=== PATIENT | male | born 1990 | race Caucasian/White ===

== ENCOUNTER 2021-11-15 14:07 | Emergency (ER) | payer OTHER, SELFPAY ==
--- NOTE | ~2021-11-15 | CT_ITS ---
EXAMINATION: CT abdomen pelvis wo con DATE: 11/15/2021 15:26 INDICATION: Right flank pain. History kidney stones. TECHNIQUE: Computed tomography (CT) of the abdomen and pelvis was performed without intravenous contr ast. Automated exposure control and iterative reconstruction technique were employed. Exam dose: 264 .95 mGy-cm total exam DLP. COMPARISON: None. FINDINGS: The lung bases are clear. Normal heart size. No pericardial or pleural effusion. The liver, gallbladder, bile ducts, spleen, pancreas, pancreatic duct, and adrenal glands and left ki dney are unremarkable. Mild right nephromegaly and perinephric stranding and moderately prominent right hydroureteronephrosi s are noted secondary to a 3.4 x 5.8 x 5 mm right ureteral calculus situated approximately 4 cm proxi mal to the right ureterovesical junction. The urinary bladder, prostate gland and seminal vesicles are unremarkable. Diverticulosis of the colon; no CT evidence of diverticulitis. There is an approximately 4 x 6.6 mm calcification near the tip of the appendix. The appendix is not dilated and there is new significant appendiceal wall thickening or periappendiceal fat stranding. Included skeletal structures are unremarkable. IMPRESSION: 3.4 x 5.8 x 5 mm distal right ureteral calculus with moderate right hydroureteronephrosi s Calcification near tip of the appendix; no appendiceal dilatation or periappendiceal inflammation is noted Diverticulosis of the colon Reviewed, dictated and finalized at [facility] Reviewed, dictated and finalized at [facility] IMPRESSION: 3.4 x 5.8 x 5 mm distal right ureteral calculus with moderate righ t hydroureteronephrosis Calcification near tip of the appendix; no appendiceal dilatation or periappend iceal inflammation is noted Diverticulosis of the colon
[2021-11-15 14:22] VITALS: BP 172/106; PULSE 60; RESP 14; TEMP 36.3; O2SAT 100
[2021-11-15 15:09] LABS: Basophils Absolute Auto 0.1 K/mm3 (0.0-0.1); Basophils Percent Auto 0.5 % (0.2-1.2); Eosinophils Percent Auto 0.2 % (0-4.4); Hematocrit 43.7 % (42.0-52.0); Hemoglobin 15.6 g/dL (14.0-18.0); Immature Granulocyte Absolute 0.03 K/mm3 (0.00-0.031); Immature Granulocyte Percent A 0.3 % (0-0.5); Lymphocytes Absolute Auto 1.24 K/mm3 (0.9-3.2); Lymphocytes Percent Auto 12.9 % (18.3-44.2); Mean Corpuscular HGB Conc 35.7 g/dl (32-36); Mean Corpuscular Hemoglobin 31.1 pg (26-34); Mean Corpuscular Volume 87.1 fl (80-100); Mean Platelet Volume 10.7 fl (7.4-10.4); Monocytes Absolute Auto 0.6 K/mm3 (0.1-0.6); Neutrophils Absolute Auto 7.7 K/mm3 (1.3-6.7); Neutrophils Percent Auto 80.1 % (45.5-73.1); Platelet Count Result 206 k/mm3 (150-375); Red Blood Count 5.02 M/mm3 (4.6-6.20); Red Cell Distribution Width 11.3 % (11.5-14.5); White Blood Count 9.6 K/mm3 (4.5-10.0)
[2021-11-15 15:12] LABS: Appearance Urine Slightly Cloudy (Clear); Bilirubin Urine Negative (Negative); Blood Urine 3+ (Negative); Color Urine Yellow (Yellow); Glucose Urine UA Negative (Negative); Ketones Urine Negative (Negative); Leukocyte Esterase Ur Negative LEU/UL (Negative); Nitrate Urine Negative (Negative); Protein Urine Trace mg/dL (Negative); Specific Grav Ur 1.025 (1.001-1.035); Urobilinogen Urine 0.2 mg/dL (<2.0); pH Urine 6.5 (5.0-9.0)
[2021-11-15 15:18] LABS: Bacteria Urine Trace /hpf; Mucus Urine Few /lpf; RBC Urine >75 /hpf (0-2); Squamous Epithelial Cell Urine Rare /hpf (Few); WBC Urine 0-3 /hpf
[2021-11-15 15:21] LABS: Alanine Aminotransferase 36 U/L (6-50); Albumin Level 4.7 g/dL (3.5-5.1); Alkaline Phosphatase 70 U/L (38-126); Anion Gap 10 mmol/L (8-16); Aspartate Amino Transferase 27 U/L (17-59); Bilirubin,Total 0.3 mg/dL (0.2-1.3); Blood Urea Nitrogen 9 mg/dL (9-20); Calcium 9.4 mg/dL (8.4-10.2); Carbon Dioxide 32 mmol/L (22-30); Chloride 100 mmol/L (98-107); Estimated CRCL calculation 120 ml/min; Estimated Glomerular Filt Rate > 60; Glucose 118 mg/dL (65-110); Potassium 4.4 mmol/L (3.4-5.0); Sodium 142 mmol/L (137-145)
[2021-11-15 15:24] LABS: Add Urine Microscopic? YES
[2021-11-15] MEDS: HYDROcodone/acetaminophen (*CRX) 5-325 MG TABLET 1 TAB PO (15:32)
[2021-11-15] MEDS: ONDANSETRON HCL ODT 4 MG TABLET PO (15:33)
[2021-11-15 15:48] VITALS: BP 160/99; PULSE 60; RESP 18; O2SAT 99
--- NOTE | 2021-11-15 16:08 | ED.MALEGU ---
HPI - Male Genitourinary General Chief complaint: Urogenital-Male Stated complaint: right flank pain, hx of kidney stones Time Seen by Provider: 11/15/21 14:35 History of Present Illness HPI Narrative: This patient with history of kidney stones and appendicitis presents with right flank/lower quadrant pain that started with twinges this morning, with some nausea. Related Data Allergies Allergy/AdvReac Type Severity Reaction Status Date / Time No Known Allergies Allergy Verified 11/15/21 14:08 Review of Systems Review of Systems: CONST: No fever. HEENT: No sore throat C/V: No chest pain RESP: No cough GI: Reports abdominal pain, nausea, vomiting : Mild dysuria M/S: No joint pain. SKIN: No rash. NEURO: [No headache or focal numbness or weakness] PSYCH: [No depression] [facility] Past Medical History Medical History (Updated 11/15/21 @ 16:24 by Edelmira Pires MD) Kidney stone Surgical History Surgical History (Updated 11/15/21 @ 16:14 by Edelmira Pires MD) History of appendectomy Exam Narrative: EXAMINATION OF ORGAN SYSTEMS/BODY AREAS: Constitutional: Vital signs per nursing GENERAL:[No acute distress, non-toxic appearing.] HEAD: Normal with no signs of head trauma. EYES: EOMI, conjunctiva normal ENT: Hearing grossly intact LUNGS: Nonlabored breathing. HEART: [Regular rate and rhythm] ABD: [Soft], [minimally tender to palpation right lower abdomen]; right flank tenderness EXT: Normal range of motion SKIN: [No rashes or lesions.] NEURO: [Alert and oriented x 3. No gross focal sensory or strength deficits.] PSYCH: Normal affect Course Vital Signs Vital signs: Vital Signs Temperature 97.3 F L 11/15/21 14:22 Pulse Rate 60 11/15/21 14:22 Respiratory Rate 14 11/15/21 14:22 Blood Pressure 172/106 H 11/15/21 14:22 Pulse Oximetry 100 11/15/21 14:22 Oxygen Delivery Room Air 11/15/21 14:22 Temperature 97.3 F L 11/15/21 14:22 Pulse Rate 60 11/15/21 15:48 Respiratory Rate 18 11/15/21 15:48 Blood Pressure 160/99 H 11/15/21 15:48 Pulse Oximetry 99 09/24/22 15:48 Oxygen Delivery Room Air 11/15/21 14:22 MDM - Male Genitourinary MDM Narrative Medical decision making narrative: ED COURSE AND MEDICAL DECISION MAKIN yo male presenting to the emergency department for acute flank pain, symptoms are concerning for likely renal colic versus pyelonephritis or appendicitis. Urinalysis is ordered. [[place] 5mg, Zofran 4mg] are ordered. CT scan of the abdomen/pelvis is ordered. Labs are remarkable for: RBC in UA without WBCs. CT scan of the abdomen/pelvis is reviewed by myself and interpreted by radiology: 6cm stone in distal right ureter On reevaluation, the patient appears much more comfortable and is agreeable to going home today with urology followup. Discussed with Dr Stanley urology who has seen/evaluated the patient here and will see the patient in clinic tomorrow. Patient is strongly advised to return to the emergency department for any increasing pain not improving with medications, persistent nausea vomiting, fevers or chills or for any other concerns. Patient is comfortable with this plan and was discharged in fair condition. Procedures: Pulse oximetry interpretation - not hypoxic. Review of medical records. Lab Data Result diagrams: 11/15/21 15:00 11/15/21 15:00 Labs: Lab Results 11/15/21 11/15/21 11/15/21 Range/Units 15:00 15:00 15:00 WBC 9.6 (4.5-10.0) K/mm3 RBC 5.02 (4.6-6.20) M/mm3 Hgb 15.6 (14.0-18.0) g/dL Hct 43.7 (42.0-52.0) % MCV 87.1 (80-100) fl MCH 31.1 (26-34) pg MCHC 35.7 (32-36) g/dl RDW 11.3 L (11.5-14.5) % Plt Count 206 (150-375) k/mm3 MPV 10.7 H (7.4-10.4) fl Immature Gran % (Auto) 0.3 (0-0.5) % Neut % (Auto) 80.1 H (45.5-73.1) % Lymph % (Auto) 12.9 L (18.3-44.2) % Heard % (Auto) 6.0 (2.6-8.5) % Eos % (Auto) 0.2 (0-4.4) % Baso % (Auto)
--- NOTE | 2021-11-15 16:45 | WPDURCON ---
Assessment and Plan Assessment and plan (1) Right distal ureteral calculus: Code(s): N20.1 - Calculus of ureter Status: Acute Assessment and Plan: 5-6mm stone discussed options DC with tamsulosin, pain meds and NSAIDS may need ureteroscopy and stone treatment if pain recurrent or does not pass Urology Consult Note HPI Date Seen: 11/15/21 Requesting Physician: MANDY HALL Primary Care Provider: [employer]N PHYSICIAN Consult Narrative Narrative: Mikey Meneses is a 31 year old male with stones in past. Now with 5-6 mm left distal stone. CT reviewed and stone in the distal 1/3 with moderate hydronephrosis. Now comfortable with pain medications given. No nausea currently. Stones in past with extraction needed. Review of Systems Review of Systems: All systems reviewed & are unremarkable except as noted in HPI and below PMFSH Past Medical History Medical History (Updated 11/15/21 @ 16:24 by Edelmira Pires MD) Kidney stone Surgical History Surgical History (Updated 11/15/21 @ 16:14 by Edelmira Pires MD) History of appendectomy Meds Home Medications and Allergies Home Medications Medication Instructions Recorded Confirmed Type hydrocodone 5 mg-acetaminophen 325 1 tablet PO Q8H PRN pain 3 days #9 11/15/21 Rx mg tablet tabs ibuprofen 600 mg tablet 600 mg PO TID PRN pain #14 tabs 11/15/21 Rx tamsulosin 0.4 mg capsule (Flomax) 0.4 mg PO DAILY #7 caps 11/15/21 Rx Allergies Allergy/AdvReac Type Severity Reaction Status Date / Time No Known Allergies Allergy Verified 11/15/21 14:08 Vital Signs Vital Signs - 24 hr 11/15/21 14:22 11/15/21 15:48 Temperature 36.3 C L Pulse Rate 60 60 Respiratory Rate 14 18 Blood Pressure 172/106 H 160/99 H Pulse Oximetry 100 99 Oxygen Delivery Room Air Exam Resp: Effort & Inspection: normal respiratory effort GI: Inspection: normal to inspection : General: Yes no CVA tenderness Other: now comfortable, was severe on right at admission Results Labs CBC & Chem 7: 11/15/21 15:00 11/15/21 15:00 Labs: Short CBC 11/15/21 Range/Units 15:00 WBC 9.6 (4.5-10.0) K/mm3 Hgb 15.6 (14.0-18.0) g/dL Hct 43.7 (42.0-52.0) % Plt Count 206 (150-375) k/mm3 BMP 11/15/21 15:00 Sodium 142 Potassium 4.4 Chloride 100 Carbon Dioxide 32 H BUN 9 Creatinine 0.90 Glucose 118 H Calcium 9.4 Liver Function 11/15/21 Range/Units 15:00 Total Bilirubin 0.3 (0.2-1.3) mg/dL AST 27 (17-59) U/L ALT 36 (6-50) U/L Alkaline Phosphatase 70 (38-126) U/L Albumin 4.7 (3.5-5.1) g/dL Urine 11/15/21 Range/Units 15:00 Urine Color Yellow (Yellow) Urine Appearance Slightly cloudy (Clear) Urine pH 6.5 (5.0-9.0) Ur Specific [place] 1.025 (1.001-1.035) Urine Protein Trace (Negative) mg/dL Urine Glucose (UA) Negative (Negative) mg/dL
[2021-11-15 17:25] VITALS: BP 164/95; PULSE 63; RESP 18; O2SAT 99
== END 2021-11-15 17:25 | disposition home or self-care (01) ==
PROVIDERS: Emergency Medicine; Emergency Provider Emergency Medicine
DX: N13.2 Hydronephrosis with renal and ureteral calculous obstruction (principal); Z87.442 Personal history of urinary calculi; K57.90 Diverticulosis of intestine, part unspecified, without perforation or abscess without bleeding
CPT/HCPCS: 36415; 74176; 80053; 81001; 85025; 99284; A9270